=== PATIENT | male | born 1945 | race Caucasian/White ===

== ENCOUNTER 2022-05-08 09:16 | Outpatient (CLI) | payer OTHER ==
[2022-05-08] MEDS ORDERED: BARIUM SULFATE 135 ML SUSP.RECON (E-Z-HD) PO ONE (09:35)
[2022-05-08] MEDS ORDERED: GASTROGRAFIN 120 ML ONE (09:59)
== END 2022-05-08 19:00 | disposition home or self-care (01) ==
LOC: SRD 09:16
PROVIDERS: ATTEND Internal Medicine
DX: K92.2 Gastrointestinal hemorrhage, unspecified (principal)
CPT/HCPCS: 74245; Q9963